=== PATIENT | male | born 2000 | race Caucasian/White ===

== ENCOUNTER 2023-05-03 08:38 | Emergency (ER) | payer SELFPAY ==
[2023-05-03 08:41] VITALS: BP 147/90; PULSE 76; RESP 14; TEMP 36.6; O2SAT 97
--- NOTE | 2023-05-03 08:53 | ED.GENADUL_ITS ---
Discharge Plan Disposition Patient Disposition: Home Condition: Stable Discharge Details Clinical Impression: Cellulitis of right index finger Primary Care Provider: None,None ED Provider: Anais Meier Home Meds and New Rx's Prescriptions: New cephalexin 500 mg capsule 500 mg PO BID 10 Days Qty: 20 0RF Rx Instructions: Take one tablet by mouth twice daily Discharge Instructions Instructions: Cellulitis (ED) Additional Instructions: Do not soak finger anymore. Keep clean and dry. Cover finger while at work. Continue the Clindamycin and start the Cephalexin which was given to you here. Follow up with primary care provider in 3-5 days. Return to ED sooner if any worsening redness, fever, swelling or concerns. Increase oral fluids. Please take Tylenol or Ibuprofen with food every 4-6 hours as needed for pain and swelling. You were given a Tetanus booster here today. Referrals: Niyah Knight NP [NURSE PRACTITIONER] - 1 week Medical Decision Making 22-year-old male presents to the ER with a chief complaint of right index finger cellulitis. 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 He has been soaking it daily. He reports the redness has somewhat improved since the onset. He is also not sure of his last tetanus vaccination. X-ray of index finger ordered to rule out foreign body or gas, will add additional antibiotic of cephalexin to the patient's already prescribed clindamycin will instruct on home care and instructed to stop soaking finger. Tdap ordered. X-ray within normal limits. Given a prescription for cephalexin and instructed on home care. Tube gauze applied by director staffing prior to discharge. This text was generated using [employer] dictation system, please disregard any oddities of phrase or misspellings. HPI General Mode of arrival: ambulatory . Date/Time Provider Initiated Documentation: 05/03/23 08:44 . Limitations to Documentation: no limitations . Information obtained by: patient, RN notes reviewed and old records reviewed . HPI Narrative: 22-year-old male presents to the ER with a chief complaint of right index finger cellulitis. 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 He has been soaking it daily. He reports the redness has somewhat improved since the onset. He is also not sure of his last tetanus vaccination. Related Data Home Medications Medication Instructions Recorded Confirmed cephalexin 500 mg capsule 500 mg PO BID Cellulitis 10 days 05/03/23 #20 caps Previous Rx's Medication Instructions Recorded cephalexin 500 mg capsule 500 mg PO BID Cellulitis 10 days 05/03/23 #20 caps General Stated Complaint: Cellulitis LYNDA: 3 Review of Systems Integumentary/Breasts Skin/Breast: Reports as per HPI, Reports erythema, Reports skin pain and Reports skin swelling PFSH All Active Problems (Updated 05/03/23 @ 09:47 by Anais Meier NP) Cellulitis of right index finger (Acute) Social History Smoking/Tobacco Use Status: Never Smoking risk assessment performed?: Yes Alcohol Intake: current Alcohol Intake frequency: holidays/special occasions only Substance use type: does not use Do you feel safe at home: Yes Do you feel safe in your relationship?: Yes Exam Extrem Right upper extremity: hand Details: tenderness, swelling Location: of the 2nd digit Location: at the proximal phalanx and on the dorsal aspect, ecchymosis and puncture wound Hand/finger images: 2 1. Erythema, warmth swelling with a central small puncture wound distal CMS intact. Patient reports that the erythema is slightly improved from onset. Course Vital Signs Vital signs: Vital Signs Temperature 36.6 C 05/03/23 08:41 Pulse 76 05/03/23 08:41 Respiratory Rate 14 05/03/23 08:41 Blood Pressure 147/90 H 05/03/23 08:41 Pulse Oximetry 97 05/03/23 08:41 Temperature 36.6 C 05/03/23 08:41 Temperature Source Oral 05/03/23 08:41 Pulse 76 05/03/23 08:41 Respiratory Rate 14 05/03/23 08:41 Blood Pressure 147/90 H 05/03/23 08:41 Blood Pressure Position Sitting 05/03/23 08:41 Pulse Oximetry 97 05/03/23 08:41 Oxygen Delivery Method Room Air 05/03/23 08:41 Oxygen Flow Rate 0 05/03/23 08:41 Pain Level 5 05/03/23 08:41
[2023-05-03] MEDS: Cephalexin 500 MG CAP PO (09:21)
--- NOTE | 2023-05-03 09:28 | DI.RAD_ITS ---
Exam(s) XR FINGER RT INDEX EXAM: XR FINGER RT INDEX CLINICAL HISTORY: Infection, swelling. TECHNIQUE: 2D digital imaging was performed. Three views. COMPARISON: No exams were available for comparison FINDINGS: BONES: No acute fracture is present. No bony destructive lesion is seen. JOINTS: No dislocation present. SOFT TISSUE: Normal. IMPRESSION: Negative right index finger DATA REPOSITORY: RADIATION DOSE DELIVERED:
--- OUTSIDE RECORDS SUMMARY | 2023-05-03 10:14 | XMS_ITS | Continuity of Care Document ---
Author Name Unknown Organization [facility] Address [address] [place] [address] Encounter [facility] FIN NBR [id number] Date(s): 04/30/23 - 04/30/23 [facility] [address], [place] [address] Encounter Diagnosis Cellulitis of finger(Discharge Diagnosis) - 04/30/23 Cellulitis of right finger(Final) - Discharge Disposition: Home or Self Care Attending Physician: Geoffrey Garg DO Admitting Physician: Geoffrey Garg DO Allergies, Adverse Reactions, Alerts No Known Allergies Functional Status 04/30/23 Other exposure to Infectious Disease Non e Medications clindamycin 300 mg oral capsule 300 mg = 1 cap, Oral, every 8 hr, X 7 days, # 21 cap, 0 Refill(s), 05/07/23 4:35:00 PM [facility], Pharmacy: [facility] Start Date: 04/30/23 Stop Date: 05/07/23 Status: Ordered Mental Status 04/30/23 Eye Opening Response Travis Spontaneous ly Best Verbal Response Travis Oriented Best Motor Response Travis Obeys comman ds [place] Coma Score 15 Vital Signs Most recent to oldest [Reference Range]: 1 Temperature Temporal Artery [36-38 Deg C ] 36.4 Deg C (04/30/23 5:16 PM) Peripheral Pulse Rate [60-100 bpm] 87 bp m (04/30/23 5:16 PM) Respiratory Rate [12-24 br/min] 18 br/mi n (04/30/23 5:16 PM) Blood Pressure [90-140/60-90 mmHg] 131/7 3mmHg (04/30/23 5:16 PM) Mean Arterial Pressure, Cuff [65-140 mmH g] 92 mmHg (04/30/23 5:16 PM) Weight Dosing 77.11 kg (04/30/23 5:35 PM) Weight Estimated 77.11 kg (04/30/23 5:16 PM) Height 172.000 cm (04/30/23 5:35 PM) Height/Length Estimated 172.000 cm (04/30/23 5:16 PM) Social History Social History Type Response Tobacco Never tobacco user T obacco Use:. Sex Male Hospital Discharge Instructions Patient Education 04/30/2023 16:34:42 Cellulitis, Adult Cellulitis, Adult Cellulitis is a skin infection. The infected area is usually warm, red, swollen, and tender. This condition occurs most often in the arms and lower legs. The infection can travel to the muscles, blood, and underlying tissue and become serious. It is very important to get treated for this condition. What are the causes? Cellulitis is caused by bacteria. The bacteria enter through a break in the skin, such as a cut, burn, insect bite, open sore, or crack. What increases the risk? This condition is more likely to occur in people who: ??? Have a weak body defense system (immune system). ??? Have open wounds on the skin, such as cuts, bowie, bites, and scrapes. Bacteria can enter the body through these open wounds. ??? Are older than 60 years of age. ??? Have diabetes. ??? Have a type of long-lasting (chronic) liver disease (cirrhosis) or kidney disease. ??? Are obese. ??? Have a skin condition such as: ??? Itchy rash (eczema). ??? Slow movement of blood in the veins (venous stasis). ??? Fluid buildup below the skin (edema). ??? Have had radiation therapy. ??? Use IV drugs. What are the signs or symptoms? Symptoms of this condition include: ??? Redness, streaking, or spotting on the skin. ??? Swollen area of the skin. ??? Tenderness or pain when an area of the skin is touched. ??? Warm skin. ??? A fever. ??? Chills. ??? Blisters. How is this diagnosed? This condition is diagnosed based on a medical history and physical exam. You may also have tests, including: ??? Blood tests. ??? Imaging tests. How is this treated? Treatment for this condition may include: ??? Medicines, such as antibiotic medicines or medicines to treat allergies (antihistamines). ??? Supportive care, such as rest and application of cold or warm cloths (compresses) to the skin. ??? Hospital care, if the condition is severe. The infection usually starts to get better within 1???2 days of treatment. Follow these instructions at home: Medicines ??? Take mldh-ram-mjwqyzs and prescription medicines only as told by your health care provider. ??? If you were prescribed an antibiotic medicine, take it as told by your health care provider. Donot stop taking the antibiotic even if you start to feel better. General instructions ??? Drink enough fluid to keep your urine pale yellow. ??? Do not touch or rub the infected area. ??? Raise (elevate) the infected area above the level of your heart while you are sitting or lying down. ??? Apply warm or cold compresses to the affected area as told by your health care provider. ??? Keep all follow-up visits as told by your health care provider. This is important. These visitslet your health care provider make sure a more serious infection is not developing. Contact a health care provider if: ??? You have a fever. ??? Your symptoms do not begin to improve within 1???2 days of starting treatment. ??? Your bone or joint underneath the infected area becomes painful after the skin has healed. ??? Your infection returns in the same area or another area. ??? You notice a swollen bump in the infected area. ??? You develop new symptoms. ??? You have a general ill feeling (malaise) with muscle aches and pains. Get help right away if: ??? Your symptoms get worse. ??? You feel very sleepy. ??? You develop vomiting or diarrhea that persists. ??? You notice red streaks coming from the infected area. ??? Your red area gets larger or turns dark in color. These symptoms may represent a serious problem that is an emergency. Do not wait to see if the symptoms will go away. Get medical help right away. Call your local emergency services (911 in the [place] Do not drive yourself to the hospital. Summary ??? Cellulitis is a skin infection. This condition occurs most often in the arms and lower legs. ??? Treatment for this condition may include medicines, such as antibiotic medicines or antihistamines. ??? Take cssq-awb-npykzzz and prescription medicines only as told by your health care provider. If you were prescribed an antibiotic medicine, do not stop taking the antibiotic even if you start to feel better. ??? Contact a health care provider if your symptoms do not begin to improve within 1???2 days of starting treatment or your symptoms get worse. ??? Keep all follow-up visits as told by your health care provider. This is important. These visitslet your health care provider make sure that a more serious infection is not developing. This information is not intended to replace advice given to you by your health care provider. Make sure you discuss any questions you have with your health care provider. Document Revised: 03/23/2022 Document Reviewed: 03/23/2022 [employer] Patient Education ?? 2022 [employer]. Follow Up Care 04/30/2023 17:16:51 With:Tylenol/Motrin for Pain/Fever Relief Address: When: Unknown Comments:Utilize Motrin 400-600 mg??every 6-8 hours as needed discomfort, Tylenol 1000 mg every 8 hours??as needed With:Follow-up with your primary care Address: When:1 week Comments:Follow-up with your primary care as needed, they will be able to reevaluate if necessaryReturn to ED if concerns Discharge instructions * Event Display: Discharge Instructions Physician Emergency department Note * ANNA Jose: PERFORM Event Display: ED Note Physician Authored Date: [id number] CHIQUIS SAPP :2000 Age:22 years Sex:Male Visit Date:04/30/2023 Basic Information Time Seen: ANNA Jose / 04/30/2023 17:27 Chief Complaint Pt presents to ED c/o right second digit upper pain, redness, swelling s/p cut while at work on Sunday History Of Present Illness: Patient 22-year-old male presents emergency department with??right index finger pain. 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 He notes that this was on Sunday. ??He then??had significant erythema and pain worsening to the combination of today where he is having pain with??gripping. He has not any fever chills nausea or vomiting has had serous drainage only??and no history of MRSA. Review of Systems: See HPI Physical Exam Vitals & Measurements T:??36.4?C ??(Temporal Artery)?? HR:??87??(Peripheral)?? RR:??18?? BP:??131/73?? SpO2:??96%?? HT:??172.000??cm?? WT:??77.11??kg??(Estimated)?? Pain Score:??3?? O2 Therapy:??Room air?? 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 Medical Decision Making: Patient be given clindamycin while here in the emergency department and started on this in the outpatient. ??I believe this to be a early cellulitis??and for this reason we will be on the antibiotics. ??I do not feel that any x-rays needed as there is no distinct injury Patient agrees with this plan and agrees with discharge Procedure No Qualifying Data Assessment/Plan 1.??Cellulitis of finger??L03.019 Patient will continue with antibiotics he will follow-up with primary care and if there are any question concerns he will be reevaluated in the nearest medical facility. Ordered: clindamycin 300 mg oral capsule, 300 mg = 1 cap, Oral, every 8 hr, X 7 days, # 21 cap, 0 Refill(s),05/07/23 17:35:00 EST, Pharmacy: [id number] ?? Orders: clindamycin, 300 mg = 2 cap, Oral, Cap, Once, Antibiotic Indication Cellulitis, First Dose: 04/30/23 18:00:00 EST, Stop Date: 04/30/23 18:00:00 EST, Physician Stop, Routine Patient Education Cellulitis, Adult Follow Up With When Contact Information Tylenol/Motrin for Pain/Fever Relief Additional Instructions: Utilize Motrin 400-600 mg??every 6-8 hours as needed discomfort, Tylenol 1000 mg every 8 hours??as needed Follow-up with your primary care Within 1 week Additional Instructions: Follow-up with your primary care as needed, they will be able to reevaluate if necessary Return to ED if concerns Medication Reconciliation New Prescription clindamycin (clindamycin 300 mg oral capsule)1 Capsules Oral (given by mouth) every 8 hours for 7 Days. Refills: 0. Problem List/Past Medical History Ongoing No qualifying data Historical No qualifying data Allergies No Known Allergies Social History Electronic Cigarette/Vaping Electronic Cigarette Use: Use, within last 90 days. Substance Use Marijuana Tobacco Never tobacco user Tobacco Use:. Electronically Signed on 04/30/23 05:38 PM ANNA Jose Emergency department Discharge instructions * ANNA Jose: PERFORM Event Display: ED Discharge Information Authored Date: [id number] SENAIT CHIQUIS :2000 Age:22 years Sex:Male Visit Date:04/30/2023 Discharge Instructions We would like to thank you for allowing us to assist you with your healthcare needs. The following includes patient education materials and information regarding your injury/illness. Diagnosis from Today's Visit Cellulitis of finger Discharge Vitals Temperature??(Temporal Artery) 97.5 ??F (36.4 ??C) Heart Rate??(Peripheral) 87 Respiratory Rate?? 18 Blood Pressure?? 131/73?? Height?? 67.72 in (172.000 cm) Weight??(Estimated) 170.03 lb (77.11 kg) Allergies No Known Allergies What to Do Next You Need to Schedule the Following Appointments Follow Up with??Tylenol/Motrin for Pain/Fever Relief Why: Utilize Motrin 400-600 mg??every 6-8 hours as needed discomfort, Tylenol 1000 mg every 8 hours??as needed Follow Up with??Follow-up with your primary care When:??Within 1 week Why: Follow-up with your primary care as needed, they will be able to reevaluate if necessary Return to ED if concerns You were treated today on an emergency basis; it may be borja to contact your primary care provider to notify them of your visit today. You may have been referred to your regular doctor or a specialist, please follow up as instructed. If your condition worsens or you can't get in to see the doctor, contact the Emergency Department. Medications What How Much When Why Instructions Next Dose New clindamycin (clindamycin 300 mg oral capsule) 1 Capsules Oral (given by mouth) Every 8 hours Cellulitis of finger Duration: 7 Days Pickup at [facility] Pharmacy Information [facility]: [address] [place], [place] [id number] [phone] Education Materials Cellulitis, Adult Cellulitis is a skin infection. The infected area is usually warm, red, swollen, and tender. This condition occurs most often in the arms and lower legs. The infection can travel to the muscles, blood, and underlying tissue and become serious. It is very important to get treated for this condition. What are the causes? Cellulitis is caused by bacteria. The bacteria enter through a break in the skin, such as a cut, burn, insect bite, open sore, or crack. What increases the risk? This condition is more likely to occur in people who: ? Have a weak body defense system (immune system). ? Have open wounds on the skin, such as cuts, bowie, bites, and scrapes. Bacteria can enter the body through these open wounds. ? Are older than 60 years of age. ? Have diabetes. ? Have a type of long-lasting (chronic) liver disease (cirrhosis) or kidney disease. ? Are obese. ? Have a skin condition such as: ? Itchy rash (eczema). ? Slow movement of blood in the veins (venous stasis). ? Fluid buildup below the skin (edema). ? Have had radiation therapy. ? Use IV drugs. What are the signs or symptoms? Symptoms of this condition include: ? Redness, streaking, or spotting on the skin. ? Swollen area of the skin. ? Tenderness or pain when an area of the skin is touched. ? Warm skin. ? A fever. ? Chills. ? Blisters. How is this diagnosed? This condition is diagnosed based on a medical history and physical exam. You may also have tests, including: ? Blood tests. ? Imaging tests. How is this treated? Treatment for this condition may include: ? Medicines, such as antibiotic medicines or medicines to treat allergies (antihistamines). ? Supportive care, such as rest and application of cold or warm cloths (compresses) to the skin. ? Hospital care, if the condition is severe. The infection usually starts to get better within 1???2 days of treatment. Follow these instructions at home: Medicines ? Take cenv-hbb-hjdyvda and prescription medicines only as told by your health care provider. ? If you were prescribed an antibiotic medicine, take it as told by your health care provider. Do notstop taking the antibiotic even if you start to feel better. General instructions ? Drink enough fluid to keep your urine pale yellow. ? Do not touch or rub the infected area. ? Raise (elevate) the infected area above the level of your heart while you are sitting or lying down. ? Apply warm or cold compresses to the affected area as told by your health care provider. ? Keep all follow-up visits as told by your health care provider. This is important. These visits letyour health care provider make sure a more serious infection is not developing. Contact a health care provider if: ? You have a fever. ? Your symptoms do not begin to improve within 1???2 days of starting treatment. ? Your bone or joint underneath the infected area becomes painful after the skin has healed. ? Your infection returns in the same area or another area. ? You notice a swollen bump in the infected area. ? You develop new symptoms. ? You have a general ill feeling (malaise) with muscle aches and pains. Get help right away if: ? Your symptoms get worse. ? You feel very sleepy. ? You develop vomiting or diarrhea that persists. ? You notice red streaks coming from the infected area. ? Your red area gets larger or turns dark in color. These symptoms may represent a serious problem that is an emergency. Do not wait to see if the symptoms will go away. Get medical help right away. Call your local emergency services (911 in the [place] Do not drive yourself to the hospital. Summary ? Cellulitis is a skin infection. This condition occurs most often in the arms and lower legs. ? Treatment for this condition may include medicines, such as antibiotic medicines or antihistamines. ? Take yjux-ave-yczlvsw and prescription medicines only as told by your health care provider. If you were prescribed an antibiotic medicine, do not stop taking the antibiotic even if you start to feel better. ? Contact a health care provider if your symptoms do not begin to improve within 1???2 days of starting treatment or your symptoms get worse. ? Keep all follow-up visits as told by your health care provider. This is important. These visits letyour health care provider make sure that a more serious infection is not developing. This information is not intended to replace advice given to you by your health care provider. Make sure you discuss any questions you have with your health care provider. Document Revised: 03/23/2022 Document Reviewed: 03/23/2022 [employer] Patient Education ?? 2022 [employer] Tests Performed Medications and Immunizations Administered Given clindamycin, 300 mg, Oral Patient/[employer] Signature Patient Name:CHIQUIS SAPP I have received this information and my questions have been answered. Patient/[employer] Name: Patient/[employer] Signature: Relationship to Patient: Witness Name/Signature: Date: Electronically Signed on: 04/30/2023 17:51 ESTSigned by:AB Patient Care team information Care Team Personnel Name: ANNA Jose Position: Physician Member Role: Physician Clinical Medical Assistant Address: Address: [address] [place] [id number] Name: Codie Foss Position: Nurse Member Role: ED Nurse Care Team Related Persons Name: LAWRENCE SAPP
== END 2023-05-03 10:12 | disposition home or self-care (01) ==
LOC: ER 10:13
PROVIDERS: Emergency Provider Registered Nurse Emergency
DX: L03.011 Cellulitis of right finger (principal); Z23 Encounter for immunization
CPT/HCPCS: 90471; 99283; 73140